=== PATIENT | male | born 1990 | race Caucasian/White ===

== ENCOUNTER 2018-11-15 21:52 | Emergency (ER) | payer BC, SELFPAY ==
[2018-11-15 21:52] VITALS: BP 126/74; PULSE 111; RESP 18; TEMP 36.8; O2SAT 96; BMI 26.6
--- NOTE | 2018-11-15 22:49 | CT_ITS ---
STUDY: CT ABDOMEN AND PELVIS WITHOUT CONTRAST REASON FOR EXAM: Male, 28 years old. Right-sided abdominal pain RADIATION DOSAGE (If Supplied By Facility): CTDIvol = ( 7.21 ) mGy, DLP = ( 355.00 ) mGycm TECHNIQUE: Transaxial images were obtained from the dome of the diaphragm to the symphysis pubis without oral contrast, and without intravenous contrast. Sagittal and coronal images were reconstructed. Individualized dose optimization techniques were used for this CT. COMPARISON: February 12, 2009 FINDINGS: The visualized lung bases are unremarkable. The visualized portions of the heart are within normal limits. Normal liver. Normal gallbladder and extrahepatic biliary system. Normal spleen. Normal pancreas. Normal bilateral adrenal glands. Normal right kidney. Normal left kidney. Normal visualized stomach. Normal small intestine. Gas-filled colon. There is non-visualization of the appendix. Normal abdominal aorta. Normal inferior vena cava. Normal retroperitoneum. Normal urinary bladder. Normal abdominal wall. Normal osseous structures. CT/Abdomen/Pelvis without Cont IMPRESSION: Increased stool and colonic ileus. The appendix is not identified but no inflammatory changes are noted. Sensitivity is limited without IV and oral contrast. Electronically Signed: Nguyễn Becerra MD at 23:37 EDT , Service support ,
--- NOTE | 2018-11-15 22:50 | ED.VISSUMM ---
- ER Visit Summary Date of Service: 11/15/18 Chief Complaint: Abdominal pain History of Present Illness: The patient is a 28 M who presents with sudden onset severe abdominal pain. He had just urinated. He then developed sudden onset sharp stabbing pain in his right lower abdomen. This radiates around to his back. It is also beginning to spread to the left. He does have a history of prior kidney stones but states this feels different. He complains of nausea without vomiting. He complains of urinary urgency but no dysuria frequency hematuria. He denies any recent illness. Review of systems otherwise negative. Physical Examination: Heart rate 111 vitals otherwise unremarkable Patient appears to be in pain laying on his side. Heart is regular tachycardia Lungs are clear Patient has voluntary guarding with focal tenderness in the right lower quadrant No CVA or back tenderness Test Results: Labs notable for potassium 3.4. Urinalysis shows [address] of the flank shows findings consistent with a colonic ileus. Emergency Department Course and Treatment: Patient was treated with IV fluids, Toradol, morphine, Zofran. Initially ureterolithiasis was the highest consideration on the differential also CT the abdomen was obtained with no contrast. This shows findings consistent with colonic ileus. On reevaluation he does feel better although he states he is still uncomfortable. Reexamination the abdomen his abdomen is soft although he is hydrogenation still operator in the right lower abdomen. Etiology of this is unclear. Patient's only medication is a proton pump inhibitor. He is had no abdominal surgeries. Patient will be admitted for further care and evaluation. Treatment Plan: [] Disposition: Admit Impression: Colonic ileus This note was generated with [employer] dictation software. It may contain incorrect words, spelling, and punctuation that were not noted in review of the chart prior to signing ED Disposition - Plan for ED Patient: Referrals: So Duff [Primary Care Provider] -
[2018-11-15 23:10] LABS: Absolute Lymphocyte Count 3.93 X10^3/ul (0.83-4.51); Absolute Neutrophil Count 6.2 X10^3/uL (2.0-7.7); Basophil# 0.05 X10^3/uL; Basophil% 0.5 % (0-1); Eosinophil# 0.19 X10^3/uL; Eosinophils% 1.7 % (0-5); Hematocrit 43.4 % (40-54); Hemoglobin 15.5 g/dl (13.0-16.5); Lymphocyte # 3.93 X10^3/ul (4.0); Mean Corp Hgb Conc 35.7 g/gl (32-36); Mean Corpuscular Hgb 31.4 pg (27.0-32.0); Mean Platelet Vol. 11.3 fl (6.2-12.0); Monocyte# 0.58 X10^3/uL; Monocyte% 5.3 % (0-10); Neutrophil # 6.17 X10^3/uL (2.7-7.7); Neutrophil % 56.4 % (47-70); Platelet Count 218 K/mm3 (150-450); RBC Distribution Width CV 12.6 % (11.6-14.6); RBC Distribution Width SD 40.3 fl (35.1-43.9); Red Blood Count 4.93 M/mm3 (4.6-6.2); White Blood Count 10.9 K/mm3 (4.4-11.0)
[2018-11-15 23:11] LABS: POSITIVE COUNT NO; POSITIVE DIFFERENTIAL NO; POSITIVE MORPHOLOGY NO
[2018-11-15] MEDS: Ondansetron 4 MG/2 ML Vial IV (23:15)
[2018-11-15] MEDS: Ketorolac 30 MG/ML Syringe IV (23:15)
[2018-11-15] MEDS: Morphine 4 MG/ML Syringe IV (23:15)
[2018-11-15] MEDS: 0.9% Normal Saline 1,000 ML 1000 ML IV (23:16)
[2018-11-15 23:26] LABS: Bacteria 0 SEEN /hpf (None Seen); Mucous, Urine 0 SEEN /hpf (<or=2+); Red Blood Cells-Urine 0 SEEN /hpf (0-5); Squamous Epithelial Cells - UA 0 SEEN /hpf (0-5); White Blood Cells 0 SEEN /hpf (0-5)
[2018-11-15 23:32] LABS: Glucose, Dipstick Normal (Normal); Ketone-Dipstick Negative (Negative); Leukocyte Esterase-Dipstick Negative /ul (Negative); Nitrite-Dipstick Negative (Negative); Occult Blood-Urine 10 /ul (Negative); Protein-Dipstick Negative (Negative); Specific Gravity, Urine 1.005 (1.002-1.030); Urine Bilirubin Dipstick Negative (Negative); Urine Urobilinogen Normal (Normal)
[2018-11-15 23:34] LABS: Anion Gap 12 (5-15); BUN 10 mg/dL (7-18); BUN/Creat Ratio 9.7 RATIO (10-20); Calcium,Total 9.2 mg/dL (8.5-10.1); Chloride 107 mmol/L (98-107); Creatinine, Serum 1.03 mg/dL (0.70-1.30); EST Glomerular Filtration Rate 91 mL/min (>60); Est Glom Filt Rate - Afr Amer 110 mL/min (>60); Estimated Creatinine Clearance 106.77 ml/min; Glucose 94 mg/dL (74-106); Potassium 3.4 mmol/L (3.5-5.1); Sodium Level 143 mmol/L (136-145)
[2018-11-15 23:45] LABS: Color, Urine Yellow (Yellow); Urine Clarity Clear (Clear)
[2018-11-16 00:16] VITALS: BP 132/69; PULSE 76; RESP 16; TEMP 36.4; O2SAT 100
--- NOTE | 2018-11-16 00:19 | HP.PCM_ITS ---
Problem List (1) Intractable abdominal pain Status: Acute History of Present Illness Date of Admission: 11/16/18 Chief Complaint: abdominal pain The patient is a 28 year old M with a significant history of GERD; tobacco abuse; prior hernia surgery who presented with excruciating abdominal pain. His pain started from his right lower quadrant and is radiated to the left lower side. His pain is cramping and excruciating. His pain worsens when he strai ghtens himself. His pain reduces when he assumes a position. He denies anorexia He denies any nausea or vomiting. He denies any diarrhea or constipation. His bowels moved 2 times on the day of presentation he is passing gas. Past Medical History Medical History: Medical History (Last Updated 11/16/18 @ 01:53 by Nikolai Dowd MD) GERD (gastroesophageal reflux disease) K21.9 Allergies amoxicillin Allergy (Verified 11/15/18 21:55) Swelling Home Medications: Ambulatory Orders Medication Instructions Recorded Omeprazole [Prilosec] 20 mg PO BID 11/16/18 Surgical History: herniorrhaphy Lives: With Family Smoking Status: Current every day smoker Tobacco Use: Cigarettes Alcohol: Occasional - *Family History Maternal Family History: Family History (Last Updated 11/16/18 @ 01:54 by Nikolai Dowd MD) Grandfather Cancer History Items: - - He does not know his maternal medical history. His paternal grandfather had cancer Paternal Family History: Family History (Last Updated 11/16/18 @ 01:54 by Nikolai Dowd MD) Grandfather Cancer Review of Systems Constitutional: Denies: Chills, Fever, Weight Change HEENT: Denies: Head Aches, Sinus Congestion, Sinus Drainage Cardiovascular: Denies: Chest Pain, Palpitations Respiratory: Denies: Cough, Shortness of breath at rest, Sputum production Gastrointestinal: Reports: Abdominal Pain. Denies: Nausea, Vomiting Genitourinary: Denies: Dysuria Musculoskeletal: Denies: Joint Pain, Joint Tenderness Skin: Denies: Rash, Wounds Neurological: Denies: Numbness, Tingling, Focal weakness Psychiatric: Denies: Anxiety, Depression, Homicidal Ideations, Suicidal Ideations Hematologic/ Lymphatic: Denies: Easy Bruising, Easy Bleeding VTE Information - Inpt Only VTE Present on Admission: No VTE Mechan Device Prophylaxis: SCD's VTE Pharm Prophylaxis ordered?: No Patient Problems: Active and Suspected Problems (Last Updated 11/16/18 @ 01:53 by Nikolai Dowd MD) Intractable abdominal pain (Acute) - Physical Exam General: Alert, Oriented x3, Cooperative HEENT: Atraumatic, PERRLA, EOMI, Normocephalic Neck: Supple, No JVD, Negative Carotid Bruits Lungs: Clear to auscultation, Normal air movement Cardiovascular: Regular rate, No murmurs Abdomen: Bowel Sounds Present, Soft, Non-Distended, Tender - Around McBurney's point. Extremities: No edema, Capillary Refill Less than 3 Seconds Skin: No rashes, No breakdown Musculoskeletal: No Tenderness to Palpation of Joints or Extremities Neurological: Cranial nerves II-XII grossly intact Psych/Mental Status: Normal Affect, Appropriate Vital Signs Temp Pulse Resp BP Pulse Ox 97.6 F L 76 16 132/69 H 100 11/16/18 00:16 11/16/18 00:16 11/16/18 00:16 11/16/18 00:16 11/16/18 00:16 Oxygen Delivery Method Room Air Weight: 81.647 kg Body Mass Index (BMI) 26.6 Laboratory Tests Past 24 Hrs 11/15/18 11/15/18 11/15/18 22:35 22:35 23:15 WBC 10.9 RBC 4.93 Hgb 15.5 Hct 43.4 MCV 88.0 MCH 31.4 MCHC 35.7 RDW 12.6 RDW Differential 40.3 Plt Count 218 MPV 11.3 Immature Gran % (Auto) 0.100 Neut % (Auto) 56.4 Lymph % (Auto) 36.0 [place] % (Auto) 5.3 Eos % (Auto) 1.7 Baso % (Auto) 0.5 Absolute Neuts (auto) 6.2 Absolute Lymphs (auto) 3.93 Total Counted Not Reportable Sodium 143 Potassium 3.4 L Chloride 107 Carbon Dioxide 24.0 Anion Gap 12 BUN 10 Creatinine 1.03 Estim Creat Clear Calc 106.77 Est GFR (MDRD) Af Amer 110 Est GFR (MDRD) Non-Af 91 BUN/Creatinine Ratio 9.7 L Glucose 94 Calcium 9.2 Urine Color Yellow Urine Clarity Clear Urine pH 7.0 Ur Specific [place] 1.005 Urine Protein Negative Urine Glucose (UA) Normal Urine Ketones Negative Urine Occult Blood 10 H Urine Nitrite Negative Urine Bilirubin Negative Urine Urobilinogen Normal Ur Leukocyte Esterase Negative Urine RBC 0 SEEN Urine WBC 0 SEEN Ur Squamous Epith Cells 0 SEEN Urine Bacteria 0 SEEN Urine Mucus 0 SEEN Assessment/Plan All Active Problems (Last Updated 11/16/18 @ 01:53 by Nikolai Dowd MD) Intractable abdominal pain (Acute) The patient is a 28 year old M with a significant history of GERD; tobacco abuse; prior hernia surgery who presented with excruciating abdominal pain that started from his right lower quadrant and moved left lower side without any constipation or diarrhea but with radiographic findings of increased stool and colonic ileus without a wall visualization of his appendix consistent with intractable abdominal pain. Intractable abdominal pain Emergency department doctor was initially suspicious of a kidney stone but CT of the abdomen and pelvis without contrast was not remarkable for a stone. It showed increased stool and colonic ileus. However patient denies a constipation. Reportedly his bowels have moved to times and was passing gas. He denies any nausea or vomiting. I was concerned about a probable appendicitis. I discussed the emergency department doctor who ordered abdominal and pelvis CT with oral and IV contrast. Will await further results of the repeat CT of the abdomen and pelvis. Meanwhile we will keep patient n.p.o. and provide supportive treatment with lactated Ringer's with potassium; PRN IV Zofran and IV morphine for pain. Depending upon the results of the repeat CT consider consulting general surgery. Tobacco abuse Counseled Nicotine patch ordered GERD at home patient take p.o. PPI will change to IV Protonix. DVT prophylaxis low risk SCD ordered. Code Visit Inpatient E&M: 24756 Init Hosp L3
--- NOTE | 2018-11-16 00:36 | CT_ITS ---
HISTORY: RIGHT SIDE PAIN, COLONIC ILEUS ON PREV CT SCAN TODAY EXAMINATION: TECHNIQUE: Helically acquired images were obtained of the abdomen and pelvis following IV contrast. A radiation dose optimization technique was used for this scan. IV Contrast dosage and agent: 100ML Isovue 300 Oral contrast: Oral contrast was administered. COMPARISON: 11/15/18 CT abdomen and pelvis. FINDINGS: LOWER CHEST: No acute or concerning findings lung bases. LIVER: Homogeneous. No focal mass. GALLBLADDER AND BILIARY TREE: No calcified gallstones. No pericholecystic edema. No intra- or extrahepatic biliary ductal dilation. KIDNEYS AND URETERS: Normal renal size and position. No hydronephrosis. ADRENAL GLANDS: Non-enlarged. SPLEEN: Normal size, no mass. PANCREAS: No pancreatic inflammation or mass. BOWEL: Normal appendix. No obstruction or inflammation of the bowel. LYMPH NODES: No enlarged mesenteric or retroperitoneal lymph nodes. PERITONEUM: No ascites or free air. No other fluid collection. VESSELS: No abdominal aortic aneurysm. URINARY BLADDER: Unremarkable. REPRODUCTIVE ORGANS: No pelvic masses.Prostate normal size. ABDOMINAL WALL: No concerning findings. BONES: No acute osseous abnormality. CT/Abdomen/Pelvis WITH Contrast IMPRESSION: Negative CT of the abdomen and pelvis with contrast. Normal appendix. Individualized dose optimization techniques were used for this CT. at 0302 Reported and signed by: Van Rosenberg MD Electronically Signed: Van Rosenberg, at 3:01 EDT Tel , Service support ,
[2018-11-16 02:54] VITALS: BP 105/55; PULSE 62; RESP 18; O2SAT 97
[2018-11-16 02:55] VITALS: BP 105/55; PULSE 62; RESP 18; TEMP 36.4; O2SAT 97
--- NOTE | 2018-11-16 03:22 | DCINST.ED_ITS ---
ED Disposition - Plan for ED Patient: Disposition: Acute Care Hospital [facility] Instructions: ABDOMINAL PAIN, Unkown Cause, (Male) Referrals: So Duff [Primary Care Provider] -
--- NOTE | 2018-11-16 03:22 | ED.DEP ---
ED Disposition - Plan for ED Patient: Disposition: Acute Care Hospital [facility] Instructions: ABDOMINAL PAIN, Unkown Cause, (Male) Referrals: So Duff [Primary Care Provider] -
[2018-11-16 03:41] VITALS: BP 110/70; PULSE 72; RESP 16; O2SAT 100
== END 2018-11-16 03:42 | disposition home or self-care (01) ==
LOC: ED 22:41 → MS3 11-16 00:44 → ED 11-16 03:17
PROVIDERS: Emergency Provider Emergency Medicine; Referring Provider Hospitalist; Visit Provider Hospitalist
DX: K56.7 Ileus, unspecified (principal); K21.9 Gastro-esophageal reflux disease without esophagitis; F17.210 Nicotine dependence, cigarettes, uncomplicated; Z87.442 Personal history of urinary calculi; Z79.899 Other long term (current) drug therapy
CPT/HCPCS: 74176; 74177; 80048; 81001; 85025; 96361; 96374; 96375; 99285; J7030; A4216; J2405